=== PATIENT | female | born 1945 | race Hispanic/Latino ===

== ENCOUNTER → 2019-04-22 | Outpatient (CLI) | payer MEDICARE ==
[~2019-04-22] MED LIST: AMLODIPINE BESYLATE PO; DIAZEPAM5 MG PO; GLIMEPIRIDE4 MG PO; LEVOTHYROXINE25 MCG PO; METFORMIN HCL500 MG PO; METOPROLOL SUC100 MG PO; VASOTEC10 MG PO
--- NOTE | 2019-04-22 13:15 | Diagnostic Imaging Report ---
EXAM: US ABDOMEN COMPLETE INDICATION: Abdominal distention, epigastric pain. COMPARISON: Abdominal ultrasound 07/29/2014. TECHNIQUE: Transverse and longitudinal rush scale and color doppler sonographic images of the abdomen were obtained. FINDINGS: LIVER 11.5 cm in the right midclavicular line. Increased echogenicity of the liver with normal contour, no masses. SPLEEN 10.5 cm in maximum diameter. Normal echogenicity, no masses. GALLBLADDER Status post cholecystectomy. BILE DUCTS No significant biliary ductal dilatation. Mildly prominent common bile duct measuring 0.8 cm, consistent with postcholecystectomy reservoir effect. PANCREAS: Limited evaluation secondary to overlying bowel gas. RIGHT KIDNEY: None 0.7 cm Echogenicity: Normal Collecting System: No hydronephrosis Stones: None Cyst/Mass: None LEFT KIDNEY: 9.9 cm Echogenicity: Normal Collecting System: No hydronephrosis Stones: None Cyst/Mass: No evidence of solid mass. There is a 0.9 cm anechoic exophytic simple appearing cyst within the inferior pole. VESSELS: Aorta: Visualized portions are within normal size limits Inferior Vena Cava: Visualized portions are normal Main Portal Vein: 0.8 cm, normal size with hepatopetal flow. FREE FLUID: None IMPRESSION: Hepatic steatosis. Status post cholecystectomy. Signed by: Dr. Venecia Enriquez MD on 04/22/2019 1:11 PM
== END ==
LOC: US 10:57
PROVIDERS: ATTEND Internal Medicine Gastroenterology
DX: R14.0 Abdominal distension (gaseous) (principal); R10.13 Epigastric pain; R12 Heartburn; E11.9 Type 2 diabetes mellitus without complications; I10 Essential (primary) hypertension; E66.9 Obesity, unspecified
CPT/HCPCS: 76700